=== PATIENT | male | born 1955 | race African-American/Black ===

== ENCOUNTER 2024-06-24 16:37 | Emergency (ER) | payer BC ==
[~2024-06-24] VITALS: Ht 172.7 cm; Wt 80.0 kg
[2024-06-24] MEDS: METHYLPREDNISOLONE SOD SUCC 125MG/2ML (ACT-O-VIAL) IV STA (17:33)
[2024-06-24] MEDS: FUROSEMIDE 40MG/4ML VIAL IVP ONE (17:33)
[2024-06-24 17:37] LABS: HEMATOCRIT. 42.6 % (42.0-52.0); HEMOGLOBIN. 13.8 g/dL (14.0-18.0); MEAN CORPUSCULAR HEMOGLOBIN 28.9 pg (28.0-32.0); MEAN CORPUSCULAR HGB CONC 32.4 g/dL (31.0-37.0); MEAN CORPUSCULAR VOLUME 89.2 fL (80.0-94.0); PLATELET 143 x1000/uL (130-400); RED BLOOD CELL COUNT 4.77 mill/uL (4.7-6.1); RED CELL DISTRIBUTION WIDTH 14.2 % (11.6-14.6); WHITE BLOOD COUNT 3.6 x1000/uL (4.5-11.0)
[2024-06-24 17:44] LABS: CARBON DIOXIDE 38 mEq/L (21-32); CHLORIDE 88 mEq/L (98-107); DIFFERENTIAL COMMENT 1; SODIUM 133 mEq/L (136-145)
[2024-06-24 17:45] LABS: CALCIUM 9.3 mg/dL (8.7-10.4)
[2024-06-24 17:50] LABS: CREATININE 0.6 mg/dL (0.6-1.3); GLUCOSE 123 mg/dL (70-105); UREA NITROGEN BLOOD 11 mg/dL (9-23)
[2024-06-24 17:52] LABS: TROPONIN I HIGH SENSITIVITY 12 ng/L (3.0-53)
[2024-06-24] MEDS: ALBUTEROL (0.083%) 2.5MG/3ML NEB HHN STA (18:15)
[2024-06-24] MEDS: IPRATROPIUM BROMIDE (0.02%) 0.5MG/2.5ML NEB HHN STA (18:15)
[2024-06-24 18:20] LABS: INR 0.9; PROTHROMBIN TIME 10.4 sec (9.6-11.0)
[2024-06-24 18:45] VITALS: PULSE 89; RESP 20; O2SAT 97
[2024-06-24 19:17] LABS: PLATELET ESTIMATE SLIGHTLY DECREASED
[2024-06-24 21:38] LABS: TROPONIN I HIGH SENSITIVITY 14 ng/L (3.0-53)
[2024-06-24 23:00] VITALS: BP 134/84; PULSE 95; RESP 26; O2SAT 95
== END 2024-06-24 23:23 | disposition short-term general hospital (02) ==
LOC: ER 16:37 → CANBEDREQ 19:12 → ER 23:23
DX: R06.02 Shortness of breath (principal); J44.9 Chronic obstructive pulmonary disease, unspecified; R53.1 Weakness; I10 Essential (primary) hypertension
CPT/HCPCS: 99285; 96374; 71045; 96375; 80048; 83880; 85025; 85610; 84484; 36415; 94640; 93005; J1940; J2919

== ENCOUNTER 2024-08-03 07:24 | Inpatient (IN) | payer BC ==
[~2024-08-03] VITALS: Ht 185.4 cm; Wt 68.9 kg
[2024-08-03] VITALS (41 sets, daily range): BP systolic 69–173; BP diastolic 52–104; PULSE 78–128; RESP 0–30; TEMP 36.7–36.8; O2SAT 0–100
[2024-08-03] MEDS ORDERED: FENTANYL CITRATE/PF 50MCG/ML 2ML VIAL IV ONE (07:45)
[2024-08-03] MEDS ORDERED: MIDAZOLAM HCL 100 MG in DEXT 5% WATER 80 ML IV ONE (07:45)
[2024-08-03] MEDS ORDERED: FENTANYL 2500MCG/250ML PMX 250 ML IV ONE (08:00)
[2024-08-03] MEDS ORDERED: MIDAZOLAM HCL 100 MG in DEXT 5% WATER 80 ML IV PRN (08:00)
[2024-08-03] MEDS ORDERED: FENTANYL CITRATE/PF 50MCG/ML 2ML VIAL IV NR (08:00)
[2024-08-03] MEDS: FENTANYL CITRATE/PF 50MCG/ML 2ML VIAL IV ONE (08:08)
[2024-08-03] MEDS: MIDAZOLAM HCL 100 MG in SODIUM CHLORIDE 0.9% 80 ML IV PRN (08:35)
[2024-08-03] MEDS: FENTANYL CITRATE/PF 1,000 MCG in DEXT 5% WATER 80 ML IV PRN (08:35)
[2024-08-03] MEDS: SODIUM CHLORIDE 0.9% (SEPSIS BOLUS) IV ONE (08:35)
[2024-08-03] MEDS: NOREPINEPHRINE 8MG/250ML PMX 250 ML IV ONE (08:56)
[2024-08-03 09:16] LABS: HEMOGLOBIN. 13.9 g/dL (14.0-18.0); MEAN CORPUSCULAR HEMOGLOBIN 28.8 pg (28.0-32.0); MEAN CORPUSCULAR HGB CONC 30.9 g/dL (31.0-37.0); MEAN CORPUSCULAR VOLUME 93.4 fL (80.0-94.0); MEAN PLATELET VOLUME 9.1 fl (7.4-10.4); PLATELET 144 x1000/uL (130-400); RED BLOOD CELL COUNT 4.82 mill/uL (4.7-6.1); RED CELL DISTRIBUTION WIDTH 14.7 % (11.6-14.6)
[2024-08-03 09:23] LABS: DIFFERENTIAL COMMENT 1
[2024-08-03 09:29] LABS: CHLORIDE 91 mEq/L (98-107); SODIUM 133 mEq/L (136-145)
[2024-08-03 09:32] LABS: CARBON DIOXIDE 37 mEq/L (21-32); POTASSIUM 6.2 mEq/L (3.5-5.1)
[2024-08-03 09:33] LABS: CALCIUM 9.1 mg/dL (8.7-10.4)
[2024-08-03 09:36] LABS: PROTHROMBIN TIME 11.4 sec (9.6-11.0)
[2024-08-03 09:37] LABS: CREATININE 0.7 mg/dL (0.6-1.3)
[2024-08-03 09:38] LABS: GLUCOSE 110 mg/dL (70-105); UREA NITROGEN BLOOD 10 mg/dL (9-23)
[2024-08-03 09:39] LABS: BG BASE EXCESS 2.6 mmol/L (-2.0-3.0); BG CARBOXYHEMOGLOBIN 0.9 % (0.5-1.5); BG DEOXYHEMOGLOBIN 3.4 % (0.0-5.0); BG FRACTION INSPIRED OXYGEN 100; BG HCO3 ACT 37.1 mmol/L (21.0-28.0); BG METHEMOGLOBIN 0.1 % (0.5-1.5); BG OXYGEN SATURATION 96.6 % (94.0-98.0); BG OXYHEMOGLOBIN 95.6 % (94.0-98.0); BG PCO2 133.9 mmHg (35.0-48.0); BG PH 7.061 (7.350-7.450); BG PO2 110.2 mmHg (83.0-108.0); BG TOTAL HEMOGLOBIN 13.5 g/dL (13.5-17.5); BG VENT MODE VENT - AC
[2024-08-03 09:39] LABS: ALANINE AMINOTRANSFERASE 802 IU/L (10-49); ASPARTATE AMINOTRANSFERASE 646 IU/L (<34); TROPONIN I HIGH SENSITIVITY 17 ng/L (3.0-53)
[2024-08-03 09:40] LABS: ALBUMIN 3.5 g/dL (3.2-4.8); BILIRUBIN DIRECT 0.2 mg/dL (<=3.0); BILIRUBIN TOTAL 0.6 mg/dL (0.1-1.0); PROTEIN TOTAL 5.8 g/dL (6.0-8.3)
[2024-08-03] MEDS: LIDOCAINE HCL 1% 10 MG/ML 10ML VIAL ONE (09:49)
[2024-08-03 09:51] LABS: LACTIC ACID 5.1 mmol/L (0.4-2.0)
[2024-08-03] MEDS: CALCIUM CHLORIDE 1GM/10ML SYR IV ONE (09:59)
[2024-08-03] MEDS: SODIUM BICARBONATE 8.4% 50MEQ/50ML SYR IV ONE (10:00)
[2024-08-03] MEDS: DEXTROSE 50% WATER 50ML SYRINGE IV ONE (10:00)
[2024-08-03] MEDS: INSULIN REGULAR (HUMULIN R) 1000UNITS/10ML VIAL IV ONE (10:01)
[2024-08-03 10:06] LABS: PLATELET ESTIMATE SLIGHTLY DECREASED
[2024-08-03] MEDS: FUROSEMIDE 40MG/4ML VIAL IV SCH (10:11)
[2024-08-03] MEDS: FUROSEMIDE 100MG/10ML VIAL IV STA (10:11)
[2024-08-03] MEDS: ALBUTEROL (0.083%) 2.5MG/3ML NEB HHN ONE (10:49)
[2024-08-03 11:21] LABS: CLARITY URINE CLOUDY (CLEAR); COLOR URINE YELLOW (YELLOW); GLUCOSE URINE TRACE (NEGATIVE); KETONES URINE NEGATIVE (NEGATIVE); LEUKOCYTE ESTERASE URINE NEGATIVE (NEGATIVE); NITRITE URINE NEGATIVE (NEGATIVE); OCCULT BLOOD URINE 2+ (NEGATIVE); PH URINE 6.5 (4.5-8.0); PROTEIN URINE 3+ (NEGATIVE); SPECIFIC GRAVITY URINE 1.016 (1.005-1.030)
[2024-08-03] MEDS: PROPOFOL 10MG/ML 100ML 100 ML IV PRN ×2 (11:44→21:20)
[2024-08-03 12:01] LABS: BACTERIA URINE 1+; SQUAMOUS EPITHELIAL CELL URINE NONE SEEN /lpf (RARE/1+); WBC URINE 0-2 /hpf (0-2); YEAST URINE NONE SEEN
[2024-08-03] MEDS: LACTATED RINGERS 1,000 ML IV SCH (12:36)
[2024-08-03] MEDS: BUDESONIDE 0.5MG/2ML NEB HHN SCH (12:36)
[2024-08-03] MEDS: IPRATROPIUM/ALBUTEROL 0.5-3(2.5)MG/3ML NEB HHN SCH (12:37)
[2024-08-03] MEDS ORDERED: NOREPINEPHRINE 8MG/250ML PMX 250 ML IV PRN (13:15)
[2024-08-03] MEDS: FAMOTIDINE 20MG/2ML VIAL IV SCH (13:49)
[2024-08-03] MEDS: METHYLPREDNISOLONE SOD SUCC 40MG/ML (ACT-O-VIAL) IV SCH (13:49)
[2024-08-03] MEDS: ENOXAPARIN 30MG/0.3ML SYR SUBCUT SCH (13:51)
[2024-08-03 14:18] LABS: BG BASE EXCESS 8.2 mmol/L (-2.0-3.0); BG CARBOXYHEMOGLOBIN 0.9 % (0.5-1.5); BG DEOXYHEMOGLOBIN 4.6 % (0.0-5.0); BG FRACTION INSPIRED OXYGEN 70; BG HCO3 ACT 37.5 mmol/L (21.0-28.0); BG METHEMOGLOBIN 0.3 % (0.5-1.5); BG OXYGEN SATURATION 95.3 % (94.0-98.0); BG OXYHEMOGLOBIN 94.2 % (94.0-98.0); BG PCO2 76.1 mmHg (35.0-48.0); BG PH 7.311 (7.350-7.450); BG PO2 78.6 mmHg (83.0-108.0); BG SAMPLE SITE RIGHT RADIAL; BG TOTAL HEMOGLOBIN 14.4 g/dL (13.5-17.5); BG VENT MODE VENT - PRVC
[2024-08-03] MEDS: DEXT 5%/0.45% NACL 1000ML 1,000 ML IV SCH (18:30)
[2024-08-03 18:49] LABS: CHLORIDE 91 mEq/L (98-107); POTASSIUM 6.1 mEq/L (3.5-5.1); SODIUM 134 mEq/L (136-145)
[2024-08-03 18:50] LABS: CALCIUM 8.9 mg/dL (8.7-10.4); CARBON DIOXIDE 36 mEq/L (21-32)
[2024-08-03 18:55] LABS: CREATININE 0.7 mg/dL (0.6-1.3); GLUCOSE 105 mg/dL (70-105); UREA NITROGEN BLOOD 9 mg/dL (9-23)
[2024-08-03] MEDS: SODIUM POLYSTYRENE SULFONATE 15 G/60 ML BOT PO NR (21:17)
[2024-08-03] MEDS: VANCOMYCIN 1.5GM/250ML 250 ML IV NR (21:17)
[2024-08-03] MEDS: NOREPINEPHRINE 8MG/250ML PMX 250 ML IV PRN (21:25)
[2024-08-03] MEDS: PIPERACILLIN/TAZO 3.375G/50ML 50 ML IV SCH (22:33)
[2024-08-03 22:54] LABS: TROPONIN I HIGH SENSITIVITY 94 ng/L (3.0-53)
[2024-08-04] VITALS (97 sets, daily range): BP systolic 87–148; BP diastolic 64–127; PULSE 79–119; RESP 9–27; TEMP 36.7–37.2; O2SAT 87–100
[2024-08-04] MEDS: VANCOMYCIN 1G PREMIX 200 ML IV SCH (05:27)
[2024-08-04 05:54] LABS: CHLORIDE 94 mEq/L (98-107); POTASSIUM 4.3 mEq/L (3.5-5.1); SODIUM 134 mEq/L (136-145)
[2024-08-04 05:55] LABS: CALCIUM 8.8 mg/dL (8.7-10.4); CARBON DIOXIDE 38 mEq/L (21-32)
[2024-08-04 05:56] LABS: HEMATOCRIT. 39.1 % (42.0-52.0); HEMOGLOBIN. 12.7 g/dL (14.0-18.0); MEAN CORPUSCULAR HEMOGLOBIN 28.7 pg (28.0-32.0); MEAN CORPUSCULAR HGB CONC 32.5 g/dL (31.0-37.0); MEAN CORPUSCULAR VOLUME 88.5 fL (80.0-94.0); MEAN PLATELET VOLUME 9.3 fl (7.4-10.4); PLATELET 155 x1000/uL (130-400); RED BLOOD CELL COUNT 4.42 mill/uL (4.7-6.1); RED CELL DISTRIBUTION WIDTH 14.6 % (11.6-14.6); WHITE BLOOD COUNT 10.7 x1000/uL (4.5-11.0)
[2024-08-04 06:00] LABS: CREATININE 0.9 mg/dL (0.6-1.3); GLUCOSE 150 mg/dL (70-105); TRIGLYCERIDE 39 mg/dL (0-150); UREA NITROGEN BLOOD 21 mg/dL (9-23)
[2024-08-04 06:30] LABS: DIFFERENTIAL COMMENT 1
[2024-08-04 09:07] LABS: BG CARBOXYHEMOGLOBIN 0.4 % (0.5-1.5); BG FRACTION INSPIRED OXYGEN 30; BG HCO3 ACT 37.7 mmol/L (21.0-28.0); BG METHEMOGLOBIN 0.1 % (0.5-1.5); BG OXYGEN SATURATION 89.9 % (94.0-98.0); BG OXYHEMOGLOBIN 89.5 % (94.0-98.0); BG PCO2 52.5 mmHg (35.0-48.0); BG PH 7.474 (7.350-7.450); BG PO2 53.7 mmHg (83.0-108.0); BG SAMPLE SITE RIGHT RADIAL; BG VENT MODE VENT - PRVC
[2024-08-04] MEDS: ENOXAPARIN 40MG/0.4ML SYR SUBCUT SCH (09:12)
[2024-08-05] VITALS (82 sets, daily range): BP systolic 84–152; BP diastolic 61–93; PULSE 74–121; RESP 15–25; TEMP 36.3–37.1; O2SAT 85–100
[2024-08-05 03:27] LABS: CHLORIDE 92 mEq/L (98-107); POTASSIUM 4.6 mEq/L (3.5-5.1); SODIUM 133 mEq/L (136-145)
[2024-08-05 03:28] LABS: CARBON DIOXIDE 38 mEq/L (21-32)
[2024-08-05 03:29] LABS: CALCIUM 8.5 mg/dL (8.7-10.4)
[2024-08-05 03:33] LABS: CREATININE 1.2 mg/dL (0.6-1.3); GLUCOSE 152 mg/dL (70-105); UREA NITROGEN BLOOD 23 mg/dL (9-23)
[2024-08-05 08:51] LABS: BG BASE EXCESS 10.3 mmol/L (-2.0-3.0); BG CARBOXYHEMOGLOBIN 0.6 % (0.5-1.5); BG DEOXYHEMOGLOBIN 3.5 % (0.0-5.0); BG FRACTION INSPIRED OXYGEN 50; BG HCO3 ACT 37.9 mmol/L (21.0-28.0); BG METHEMOGLOBIN 0.2 % (0.5-1.5); BG OXYGEN SATURATION 96.5 % (94.0-98.0); BG OXYHEMOGLOBIN 95.7 % (94.0-98.0); BG PH 7.377 (7.350-7.450); BG PO2 87.4 mmHg (83.0-108.0); BG SAMPLE SITE RIGHT RADIAL; BG TOTAL HEMOGLOBIN 12.5 g/dL (13.5-17.5); BG VENT MODE VENT - AC
[2024-08-05] MEDS: FUROSEMIDE 40MG/4ML VIAL IVP NR (12:07)
[2024-08-05 12:29] LABS: BG BASE EXCESS 12.4 mmol/L (-2.0-3.0); BG CARBOXYHEMOGLOBIN 0.8 % (0.5-1.5); BG DEOXYHEMOGLOBIN 4.6 % (0.0-5.0); BG FRACTION INSPIRED OXYGEN 50; BG HCO3 ACT 39.8 mmol/L (21.0-28.0); BG METHEMOGLOBIN 0.1 % (0.5-1.5); BG OXYGEN SATURATION 95.4 % (94.0-98.0); BG OXYHEMOGLOBIN 94.5 % (94.0-98.0); BG PCO2 63.9 mmHg (35.0-48.0); BG PH 7.412 (7.350-7.450); BG PO2 77.2 mmHg (83.0-108.0); BG SAMPLE SITE RIGHT RADIAL; BG TOTAL HEMOGLOBIN 13.5 g/dL (13.5-17.5); BG VENT MODE VENT - AC
[2024-08-05 16:07] LABS: PLATELET ESTIMATE NORMAL
[2024-08-05] MEDS: VANCOMYCIN 500MG PREMIX 100 ML IV SCH (21:29)
[2024-08-05] MEDS: FAMOTIDINE 20MG/2ML VIAL IV SCH (21:29)
[2024-08-06] VITALS (81 sets, daily range): BP systolic 93–143; BP diastolic 63–93; PULSE 78–125; RESP 13–26; TEMP 36.9–37.4; O2SAT 88–100
[2024-08-06 06:29] LABS: CARBON DIOXIDE 40 mEq/L (21-32); CHLORIDE 94 mEq/L (98-107); POTASSIUM 4.5 mEq/L (3.5-5.1); SODIUM 135 mEq/L (136-145)
[2024-08-06 06:30] LABS: CALCIUM 8.7 mg/dL (8.7-10.4)
[2024-08-06 06:35] LABS: CREATININE 1.1 mg/dL (0.6-1.3); GLUCOSE 144 mg/dL (70-105); UREA NITROGEN BLOOD 26 mg/dL (9-23)
[2024-08-06 06:40] LABS: HEMATOCRIT. 35.6 % (42.0-52.0); HEMOGLOBIN. 11.8 g/dL (14.0-18.0); MEAN CORPUSCULAR HEMOGLOBIN 29.1 pg (28.0-32.0); MEAN CORPUSCULAR VOLUME 88.3 fL (80.0-94.0); MEAN PLATELET VOLUME 9.4 fl (7.4-10.4); PLATELET 120 x1000/uL (130-400); RED BLOOD CELL COUNT 4.04 mill/uL (4.7-6.1); RED CELL DISTRIBUTION WIDTH 14.7 % (11.6-14.6); WHITE BLOOD COUNT 10.6 x1000/uL (4.5-11.0)
[2024-08-06 07:40] LABS: DIFFERENTIAL COMMENT 1
[2024-08-06 11:33] LABS: BG BASE EXCESS 11.2 mmol/L (-2.0-3.0); BG CARBOXYHEMOGLOBIN 1.1 % (0.5-1.5); BG DEOXYHEMOGLOBIN 17.8 % (0.0-5.0); BG FRACTION INSPIRED OXYGEN 40; BG HCO3 ACT 40.7 mmol/L (21.0-28.0); BG METHEMOGLOBIN 0.1 % (0.5-1.5); BG PCO2 80.3 mmHg (35.0-48.0); BG PH 7.323 (7.350-7.450); BG PO2 51.4 mmHg (83.0-108.0); BG SAMPLE SITE RIGHT RADIAL; BG TOTAL HEMOGLOBIN 13.5 g/dL (13.5-17.5); BG VENT MODE VENT - CPAP
[2024-08-06 11:54] LABS: PLATELET ESTIMATE SLIGHTLY DECREASED
[2024-08-06] MEDS ORDERED: VANCOMYCIN 1.25GM PMX (XELLIA) 250 ML IV SCH (21:00)
[2024-08-07] VITALS (88 sets, daily range): BP systolic 77–135; BP diastolic 59–90; PULSE 79–113; RESP 13–41; TEMP 36.6–37.6; O2SAT 87–100
[2024-08-07 06:02] LABS: HEMATOCRIT. 38.2 % (42.0-52.0); HEMOGLOBIN. 12.4 g/dL (14.0-18.0); MEAN CORPUSCULAR HEMOGLOBIN 28.6 pg (28.0-32.0); MEAN CORPUSCULAR HGB CONC 32.4 g/dL (31.0-37.0); MEAN CORPUSCULAR VOLUME 88.4 fL (80.0-94.0); MEAN PLATELET VOLUME 9.9 fl (7.4-10.4); PLATELET 109 x1000/uL (130-400); RED BLOOD CELL COUNT 4.32 mill/uL (4.7-6.1); RED CELL DISTRIBUTION WIDTH 14.9 % (11.6-14.6); WHITE BLOOD COUNT 9.4 x1000/uL (4.5-11.0)
[2024-08-07 06:03] LABS: CARBON DIOXIDE 39 mEq/L (21-32); CHLORIDE 93 mEq/L (98-107); POTASSIUM 4.2 mEq/L (3.5-5.1); SODIUM 138 mEq/L (136-145)
[2024-08-07 06:04] LABS: CALCIUM 9.3 mg/dL (8.7-10.4)
[2024-08-07 06:09] LABS: GLUCOSE 105 mg/dL (70-105); UREA NITROGEN BLOOD 28 mg/dL (9-23)
[2024-08-07 06:12] LABS: DIFFERENTIAL COMMENT 1
[2024-08-07 08:54] LABS: BG BASE EXCESS 11.2 mmol/L (-2.0-3.0); BG CARBOXYHEMOGLOBIN 1.5 % (0.5-1.5); BG DEOXYHEMOGLOBIN 9.9 % (0.0-5.0); BG FRACTION INSPIRED OXYGEN 50; BG HCO3 ACT 41.2 mmol/L (21.0-28.0); BG METHEMOGLOBIN 0.2 % (0.5-1.5); BG OXYGEN SATURATION 89.9 % (94.0-98.0); BG OXYHEMOGLOBIN 88.4 % (94.0-98.0); BG PCO2 85.9 mmHg (35.0-48.0); BG PH 7.299 (7.350-7.450); BG PO2 64.8 mmHg (83.0-108.0); BG SAMPLE SITE RIGHT RADIAL; BG TOTAL HEMOGLOBIN 13.3 g/dL (13.5-17.5); BG VENT MODE VENT - CPAP
[2024-08-07 12:06] LABS: PLATELET ESTIMATE SLIGHTLY DECREASED
[2024-08-08] VITALS (74 sets, daily range): BP systolic 81–120; BP diastolic 62–82; PULSE 68–122; RESP 14–53; TEMP 36.8–37.2; O2SAT 61–100
[2024-08-08 06:03] LABS: HEMATOCRIT. 33.1 % (42.0-52.0); HEMOGLOBIN. 10.7 g/dL (14.0-18.0); MEAN CORPUSCULAR HEMOGLOBIN 28.8 pg (28.0-32.0); MEAN CORPUSCULAR HGB CONC 32.4 g/dL (31.0-37.0); MEAN CORPUSCULAR VOLUME 89.1 fL (80.0-94.0); MEAN PLATELET VOLUME 9.6 fl (7.4-10.4); PLATELET 90 x1000/uL (130-400); RED BLOOD CELL COUNT 3.71 mill/uL (4.7-6.1); RED CELL DISTRIBUTION WIDTH 14.5 % (11.6-14.6)
[2024-08-08 07:13] LABS: CALCIUM 8.9 mg/dL (8.7-10.4); CHLORIDE 95 mEq/L (98-107); POTASSIUM 4.6 mEq/L (3.5-5.1); SODIUM 139 mEq/L (136-145)
[2024-08-08 07:14] LABS: CARBON DIOXIDE 39 mEq/L (21-32)
[2024-08-08 07:19] LABS: CREATININE 0.9 mg/dL (0.6-1.3); GLUCOSE 143 mg/dL (70-105); UREA NITROGEN BLOOD 32 mg/dL (9-23)
[2024-08-08 07:21] LABS: PHOSPHORUS 2.5 mg/dL (2.5-4.9)
[2024-08-08 07:50] LABS: DIFFERENTIAL COMMENT 1
[2024-08-08 11:50] LABS: BG BASE EXCESS 8.9 mmol/L (-2.0-3.0); BG CARBOXYHEMOGLOBIN 0.9 % (0.5-1.5); BG DEOXYHEMOGLOBIN 8.6 % (0.0-5.0); BG FRACTION INSPIRED OXYGEN 45; BG HCO3 ACT 36.8 mmol/L (21.0-28.0); BG METHEMOGLOBIN 0.3 % (0.5-1.5); BG OXYGEN SATURATION 91.3 % (94.0-98.0); BG OXYHEMOGLOBIN 90.2 % (94.0-98.0); BG PCO2 69.3 mmHg (35.0-48.0); BG PH 7.343 (7.350-7.450); BG PO2 65.6 mmHg (83.0-108.0); BG TOTAL HEMOGLOBIN 11.4 g/dL (13.5-17.5); BG VENT MODE VENT - CPAP
[2024-08-08 15:53] LABS: PLATELET ESTIMATE DECREASED
[2024-08-08 16:41] LABS: BG BASE EXCESS 13.3 mmol/L (-2.0-3.0); BG CARBOXYHEMOGLOBIN 0.8 % (0.5-1.5); BG DEOXYHEMOGLOBIN 7.9 % (0.0-5.0); BG FRACTION INSPIRED OXYGEN 55; BG METHEMOGLOBIN 0.4 % (0.5-1.5); BG OXYHEMOGLOBIN 90.9 % (94.0-98.0); BG PCO2 89.5 mmHg (35.0-48.0); BG PO2 70.5 mmHg (83.0-108.0); BG SAMPLE SITE RIGHT RADIAL; BG TOTAL HEMOGLOBIN 11.4 g/dL (13.5-17.5); BG VENT MODE HIGH FLOW
[2024-08-09] VITALS (54 sets, daily range): BP systolic 84–132; BP diastolic 60–96; PULSE 85–109; RESP 13–31; TEMP 36.6–37; O2SAT 77–100
[2024-08-09 10:00] LABS: BG BASE EXCESS 15.7 mmol/L (-2.0-3.0); BG CARBOXYHEMOGLOBIN 1.8 % (0.5-1.5); BG DEOXYHEMOGLOBIN 12.3 % (0.0-5.0); BG FRACTION INSPIRED OXYGEN 55; BG OXYGEN SATURATION 87.5 % (94.0-98.0); BG OXYHEMOGLOBIN 85.9 % (94.0-98.0); BG PCO2 112.2 mmHg (35.0-48.0); BG PH 7.249 (7.350-7.450); BG PO2 59.3 mmHg (83.0-108.0); BG SAMPLE SITE RIGHT RADIAL; BG TOTAL HEMOGLOBIN 13.1 g/dL (13.5-17.5); BG VENT MODE HIGH FLOW
[2024-08-10] VITALS (46 sets, daily range): BP systolic 99–129; BP diastolic 70–90; PULSE 85–109; RESP 9–24; TEMP 36.6–37; O2SAT 84–100
[2024-08-10 06:22] LABS: HEMATOCRIT. 36.9 % (42.0-52.0); HEMOGLOBIN. 11.7 g/dL (14.0-18.0); MEAN CORPUSCULAR HEMOGLOBIN 29.1 pg (28.0-32.0); MEAN CORPUSCULAR HGB CONC 31.8 g/dL (31.0-37.0); MEAN CORPUSCULAR VOLUME 91.4 fL (80.0-94.0); MEAN PLATELET VOLUME 9.7 fl (7.4-10.4); PLATELET 122 x1000/uL (130-400); RED BLOOD CELL COUNT 4.04 mill/uL (4.7-6.1); RED CELL DISTRIBUTION WIDTH 14.4 % (11.6-14.6); WHITE BLOOD COUNT 7.5 x1000/uL (4.5-11.0)
[2024-08-10 06:37] LABS: CALCIUM 9.2 mg/dL (8.7-10.4); CHLORIDE 96 mEq/L (98-107); POTASSIUM 5.6 mEq/L (3.5-5.1); SODIUM 140 mEq/L (136-145)
[2024-08-10 06:42] LABS: BG BASE EXCESS 9.9 mmol/L (-2.0-3.0); BG FRACTION INSPIRED OXYGEN 55; BG HCO3 ACT 40.9 mmol/L (21.0-28.0); BG PCO2 89.9 mmHg (35.0-48.0); BG PH 7.276 (7.350-7.450); BG VENT MODE MASK - BIPAP
[2024-08-10 06:43] LABS: CREATININE 0.6 mg/dL (0.6-1.3); GLUCOSE 118 mg/dL (70-105); UREA NITROGEN BLOOD 26 mg/dL (9-23)
[2024-08-10 06:48] LABS: DIFFERENTIAL COMMENT 1
[2024-08-10 06:57] LABS: CARBON DIOXIDE > 40 mEq/L (21-32)
[2024-08-10 09:42] LABS: PLATELET ESTIMATE SLIGHTLY DECREASED
[2024-08-10] MEDS: NA PHOS,M-B/NA PHOS,DI-BA ENEMA 118ML PR NR (13:12)
[2024-08-10] MEDS: FUROSEMIDE 40MG/4ML VIAL IVP NR (21:06)
[2024-08-11] VITALS (45 sets, daily range): BP systolic 121–154; BP diastolic 74–103; PULSE 83–111; RESP 13–32; TEMP 36.3–36.8; O2SAT 80–100
[2024-08-11 05:24] LABS: HEMATOCRIT. 36.7 % (42.0-52.0); HEMOGLOBIN. 11.7 g/dL (14.0-18.0); MEAN CORPUSCULAR HEMOGLOBIN 28.1 pg (28.0-32.0); MEAN CORPUSCULAR HGB CONC 31.8 g/dL (31.0-37.0); MEAN CORPUSCULAR VOLUME 88.4 fL (80.0-94.0); MEAN PLATELET VOLUME 9.7 fl (7.4-10.4); PLATELET 142 x1000/uL (130-400); RED BLOOD CELL COUNT 4.15 mill/uL (4.7-6.1); RED CELL DISTRIBUTION WIDTH 14.3 % (11.6-14.6); WHITE BLOOD COUNT 7.7 x1000/uL (4.5-11.0)
[2024-08-11 05:35] LABS: CHLORIDE 93 mEq/L (98-107); POTASSIUM 5.6 mEq/L (3.5-5.1); SODIUM 140 mEq/L (136-145)
[2024-08-11 05:37] LABS: CALCIUM 9.4 mg/dL (8.7-10.4)
[2024-08-11 05:41] LABS: CREATININE 0.7 mg/dL (0.6-1.3); GLUCOSE 104 mg/dL (70-105)
[2024-08-11 05:42] LABS: UREA NITROGEN BLOOD 24 mg/dL (9-23)
[2024-08-11 06:05] LABS: DIFFERENTIAL COMMENT 1
[2024-08-11 07:57] LABS: CARBON DIOXIDE > 40 mEq/L (21-32)
[2024-08-11] MEDS: SODIUM ZIRCONIUM CYCLOSILICATE 10GM/PACKET PO NR (09:31)
[2024-08-11 09:39] LABS: BG BASE EXCESS 15.5 mmol/L (-2.0-3.0); BG CARBOXYHEMOGLOBIN 1.4 % (0.5-1.5); BG DEOXYHEMOGLOBIN 13.8 % (0.0-5.0); BG FRACTION INSPIRED OXYGEN 50; BG HCO3 ACT 46.8 mmol/L (21.0-28.0); BG METHEMOGLOBIN 0.3 % (0.5-1.5); BG OXYHEMOGLOBIN 84.5 % (94.0-98.0); BG PCO2 99.8 mmHg (35.0-48.0); BG PH 7.289 (7.350-7.450); BG PO2 53.6 mmHg (83.0-108.0); BG SAMPLE SITE RIGHT RADIAL; BG TOTAL HEMOGLOBIN 13.4 g/dL (13.5-17.5); BG VENT MODE HIGH FLOW
[2024-08-11] MEDS: IOHEXOL-350 100 ML BOTTLE ONE (09:47)
[2024-08-11] MEDS: FUROSEMIDE 40MG/4ML VIAL IVP NR (11:46)
[2024-08-11] MEDS: SODIUM BICARBONATE 8.4% 50MEQ/50ML SYR IV NR (11:46)
[2024-08-11] MEDS: CALCIUM GLUCONATE 100MG/ML 10ML VIAL IV NR (11:46)
[2024-08-11 14:49] LABS: BG BASE EXCESS 16.3 mmol/L (-2.0-3.0); BG CARBOXYHEMOGLOBIN 1.6 % (0.5-1.5); BG DEOXYHEMOGLOBIN 10.1 % (0.0-5.0); BG FRACTION INSPIRED OXYGEN 45; BG METHEMOGLOBIN 0.3 % (0.5-1.5); BG OXYGEN SATURATION 89.7 % (94.0-98.0); BG PCO2 90.8 mmHg (35.0-48.0); BG PH 7.332 (7.350-7.450); BG PO2 58.7 mmHg (83.0-108.0); BG SAMPLE SITE RIGHT RADIAL; BG VENT MODE MASK - BIPAP
[2024-08-11 17:56] LABS: PLATELET ESTIMATE SLIGHTLY DECREASED
[2024-08-12] VITALS (17 sets, daily range): BP systolic 107–131; BP diastolic 63–89; PULSE 82–108; RESP 15–23; TEMP 36.2–36.9; O2SAT 97–100
[2024-08-12 07:04] LABS: CHLORIDE 89 mEq/L (98-107); POTASSIUM 5.1 mEq/L (3.5-5.1); SODIUM 142 mEq/L (136-145)
[2024-08-12 07:11] LABS: CREATININE 0.6 mg/dL (0.6-1.3); GLUCOSE 108 mg/dL (70-105); UREA NITROGEN BLOOD 26 mg/dL (9-23)
[2024-08-12 08:12] LABS: HEMATOCRIT. 37.4 % (42.0-52.0); HEMOGLOBIN. 11.9 g/dL (14.0-18.0); MEAN CORPUSCULAR HEMOGLOBIN 28.2 pg (28.0-32.0); MEAN CORPUSCULAR HGB CONC 31.8 g/dL (31.0-37.0); MEAN CORPUSCULAR VOLUME 88.6 fL (80.0-94.0); MEAN PLATELET VOLUME 9.7 fl (7.4-10.4); PLATELET 173 x1000/uL (130-400); RED BLOOD CELL COUNT 4.22 mill/uL (4.7-6.1); RED CELL DISTRIBUTION WIDTH 14.3 % (11.6-14.6); WHITE BLOOD COUNT 6.1 x1000/uL (4.5-11.0)
[2024-08-12 08:40] LABS: CARBON DIOXIDE > 40 mEq/L (21-32)
[2024-08-12 10:15] LABS: DIFFERENTIAL COMMENT 1
[2024-08-12 18:31] LABS: PLATELET ESTIMATE NORMAL
[2024-08-12] MEDS: FUROSEMIDE 40MG/4ML VIAL IVP NR (21:04)
[2024-08-13] VITALS (20 sets, daily range): BP systolic 101–150; BP diastolic 73–92; PULSE 84–102; RESP 12–45; TEMP 36.6–37.3; O2SAT 88–100
[2024-08-13 02:07] LABS: BG BASE EXCESS 24.1 mmol/L (-2.0-3.0); BG CARBOXYHEMOGLOBIN 1.1 % (0.5-1.5); BG DEOXYHEMOGLOBIN 14.7 % (0.0-5.0); BG FRACTION INSPIRED OXYGEN 40; BG HCO3 ACT 55.2 mmol/L (21.0-28.0); BG OXYGEN SATURATION 85.1 % (94.0-98.0); BG OXYHEMOGLOBIN 84.2 % (94.0-98.0); BG PCO2 99.5 mmHg (35.0-48.0); BG PH 7.362 (7.350-7.450); BG SAMPLE SITE RIGHT RADIAL; BG TOTAL HEMOGLOBIN 12.8 g/dL (13.5-17.5); BG VENT MODE NASAL CANNULA
[2024-08-13 05:17] LABS: CHLORIDE 86 mEq/L (98-107); POTASSIUM 4.6 mEq/L (3.5-5.1); SODIUM 141 mEq/L (136-145)
[2024-08-13 05:18] LABS: CALCIUM 10.1 mg/dL (8.7-10.4)
[2024-08-13 05:23] LABS: CREATININE 0.6 mg/dL (0.6-1.3); GLUCOSE 133 mg/dL (70-105); UREA NITROGEN BLOOD 24 mg/dL (9-23)
[2024-08-13 05:35] LABS: CARBON DIOXIDE > 40 mEq/L (21-32)
[2024-08-13 08:03] LABS: HEMATOCRIT. 37.5 % (42.0-52.0); HEMOGLOBIN. 11.9 g/dL (14.0-18.0); MEAN CORPUSCULAR HEMOGLOBIN 28.6 pg (28.0-32.0); MEAN CORPUSCULAR HGB CONC 31.8 g/dL (31.0-37.0); MEAN PLATELET VOLUME 9.5 fl (7.4-10.4); PLATELET 197 x1000/uL (130-400); RED BLOOD CELL COUNT 4.17 mill/uL (4.7-6.1); WHITE BLOOD COUNT 8.2 x1000/uL (4.5-11.0)
[2024-08-13 08:36] LABS: DIFFERENTIAL COMMENT 1
[2024-08-13 16:07] LABS: PLATELET ESTIMATE NORMAL
[2024-08-14] VITALS (11 sets, daily range): BP systolic 103–148; BP diastolic 74–88; PULSE 84–101; RESP 15–31; TEMP 36.5–37.2; O2SAT 88–98
[2024-08-14 06:16] LABS: CHLORIDE 88 mEq/L (98-107); POTASSIUM 4.2 mEq/L (3.5-5.1); SODIUM 141 mEq/L (136-145)
[2024-08-14 06:17] LABS: HEMATOCRIT 35.9 % (42.0-52.0); HEMOGLOBIN 11.7 g/dL (14.0-18.0); MEAN CORPUSCULAR HEMOGLOBIN 28.7 pg (28.0-32.0); MEAN CORPUSCULAR HGB CONC 32.5 g/dL (31.0-37.0); MEAN CORPUSCULAR VOLUME 88.2 fL (80.0-94.0); PLATELET 180 x1000/uL (130-400); RED BLOOD CELL COUNT 4.07 mill/uL (4.7-6.1); WHITE BLOOD COUNT 10.1 x1000/uL (4.5-11.0)
[2024-08-14 06:18] LABS: CALCIUM 10.1 mg/dL (8.7-10.4)
[2024-08-14 06:22] LABS: CREATININE 0.7 mg/dL (0.6-1.3); GLUCOSE 85 mg/dL (70-105); UREA NITROGEN BLOOD 22 mg/dL (9-23)
[2024-08-14 06:49] LABS: CARBON DIOXIDE > 40 mEq/L (21-32)
[2024-08-14] MEDS: PREDNISONE 20MG TABLET PO SCH (09:02)
[2024-08-14 09:05] LABS: INR 1.1
[2024-08-14] MEDS ORDERED: LIDOCAINE HCL 1% 20ML VIAL ONE (13:31)
[2024-08-14] MEDS ORDERED: HEPARIN 1000 UNITS/ML 10ML ONE (13:32)
[2024-08-14] MEDS ORDERED: VERAPAMIL HCL 2.5 MG/1 ML 2ML VIAL IV ONE (13:32)
[2024-08-14] MEDS ORDERED: IODIXANOL 320MG/ML 100 ML BOTTLE IV ONE (13:32)
[2024-08-14] MEDS ORDERED: DIPHENHYDRAMINE 50MG/ML VIAL ONE (13:49)
[2024-08-14] MEDS ORDERED: MIDAZOLAM HCL 2 MG/2 ML VIAL ONE (13:50)
[2024-08-14] MEDS ORDERED: FENTANYL CITRATE/PF 50MCG/ML 2ML VIAL ONE (13:50)
[2024-08-14] MEDS ORDERED: ATROPINE SULFATE 1MG/10ML SYR IV PRN (15:15)
[2024-08-15] VITALS (15 sets, daily range): BP systolic 99–121; BP diastolic 57–79; PULSE 80–100; RESP 14–23; TEMP 36.4–37.3; O2SAT 91–97
[2024-08-15 04:51] LABS: CHLORIDE 90 mEq/L (98-107); POTASSIUM 4.8 mEq/L (3.5-5.1); SODIUM 142 mEq/L (136-145)
[2024-08-15 04:52] LABS: CALCIUM 9.7 mg/dL (8.7-10.4)
[2024-08-15 04:57] LABS: CREATININE 0.6 mg/dL (0.6-1.3); GLUCOSE 85 mg/dL (70-105); UREA NITROGEN BLOOD 23 mg/dL (9-23)
[2024-08-15 05:01] LABS: CARBON DIOXIDE > 40 mEq/L (21-32)
[2024-08-15 07:15] LABS: HEMATOCRIT. 38.1 % (42.0-52.0); HEMOGLOBIN. 12.1 g/dL (14.0-18.0); MEAN CORPUSCULAR HEMOGLOBIN 28.9 pg (28.0-32.0); MEAN CORPUSCULAR HGB CONC 31.9 g/dL (31.0-37.0); MEAN CORPUSCULAR VOLUME 90.6 fL (80.0-94.0); MEAN PLATELET VOLUME 9.1 fl (7.4-10.4); PLATELET 183 x1000/uL (130-400); RED BLOOD CELL COUNT 4.21 mill/uL (4.7-6.1); RED CELL DISTRIBUTION WIDTH 14.4 % (11.6-14.6); WHITE BLOOD COUNT 7.3 x1000/uL (4.5-11.0)
[2024-08-15 07:23] LABS: DIFFERENTIAL COMMENT 1
[2024-08-15 17:01] LABS: PLATELET ESTIMATE NORMAL
[2024-08-16] VITALS (10 sets, daily range): BP systolic 91–125; BP diastolic 57–82; PULSE 85–98; RESP 11–21; TEMP 36.5–37.3; O2SAT 88–97
[2024-08-16] MEDS: ACETAMINOPHEN 325MG TABLET PO PRN (14:00)
[2024-08-17] VITALS (14 sets, daily range): BP systolic 103–131; BP diastolic 64–83; PULSE 80–106; RESP 14–25; TEMP 36.1–36.6; O2SAT 90–100
[2024-08-17 07:10] LABS: HEMATOCRIT. 35.1 % (42.0-52.0); HEMOGLOBIN. 11.1 g/dL (14.0-18.0); MEAN CORPUSCULAR HEMOGLOBIN 28.1 pg (28.0-32.0); MEAN CORPUSCULAR HGB CONC 31.6 g/dL (31.0-37.0); MEAN PLATELET VOLUME 8.9 fl (7.4-10.4); PLATELET 148 x1000/uL (130-400); RED BLOOD CELL COUNT 3.94 mill/uL (4.7-6.1); RED CELL DISTRIBUTION WIDTH 13.8 % (11.6-14.6); WHITE BLOOD COUNT 8.6 x1000/uL (4.5-11.0)
[2024-08-17 07:21] LABS: DIFFERENTIAL COMMENT 1
[2024-08-17 07:34] LABS: CHLORIDE 91 mEq/L (98-107); POTASSIUM 4.6 mEq/L (3.5-5.1); SODIUM 143 mEq/L (136-145)
[2024-08-17 07:35] LABS: CALCIUM 9.5 mg/dL (8.7-10.4)
[2024-08-17 07:40] LABS: CREATININE 0.6 mg/dL (0.6-1.3)
[2024-08-17 07:41] LABS: GLUCOSE 88 mg/dL (70-105); UREA NITROGEN BLOOD 18 mg/dL (9-23)
[2024-08-17 08:55] LABS: CARBON DIOXIDE > 40 mEq/L (21-32)
[2024-08-17 12:47] LABS: PLATELET ESTIMATE NORMAL
[2024-08-17 14:56] LABS: BG BASE EXCESS 16.4 mmol/L (-2.0-3.0); BG CARBOXYHEMOGLOBIN 1.5 % (0.5-1.5); BG DEOXYHEMOGLOBIN 10.8 % (0.0-5.0); BG FRACTION INSPIRED OXYGEN 50; BG HCO3 ACT 47.8 mmol/L (21.0-28.0); BG METHEMOGLOBIN 0.3 % (0.5-1.5); BG OXYHEMOGLOBIN 87.4 % (94.0-98.0); BG PCO2 104.1 mmHg (35.0-48.0); BG PO2 56.5 mmHg (83.0-108.0); BG SAMPLE SITE LEFT RADIAL; BG TOTAL HEMOGLOBIN 12.7 g/dL (13.5-17.5); BG VENT MODE MASK - BIPAP
[2024-08-18] VITALS (17 sets, daily range): BP systolic 99–124; BP diastolic 68–85; PULSE 88–99; RESP 10–29; TEMP 36.3–37.3; O2SAT 100
[2024-08-18 08:06] LABS: CHLORIDE 91 mEq/L (98-107); SODIUM 142 mEq/L (136-145)
[2024-08-18 08:07] LABS: CALCIUM 9.6 mg/dL (8.7-10.4)
[2024-08-18 08:12] LABS: CREATININE 0.5 mg/dL (0.6-1.3); GLUCOSE 95 mg/dL (70-105); UREA NITROGEN BLOOD 18 mg/dL (9-23)
[2024-08-18 08:15] LABS: HEMATOCRIT. 38.6 % (42.0-52.0); MEAN CORPUSCULAR HEMOGLOBIN 28.6 pg (28.0-32.0); MEAN CORPUSCULAR HGB CONC 31.1 g/dL (31.0-37.0); MEAN CORPUSCULAR VOLUME 91.9 fL (80.0-94.0); MEAN PLATELET VOLUME 9.2 fl (7.4-10.4); PLATELET 154 x1000/uL (130-400); WHITE BLOOD COUNT 6.5 x1000/uL (4.5-11.0)
[2024-08-18 08:21] LABS: CARBON DIOXIDE > 40 mEq/L (21-32)
[2024-08-18 08:33] LABS: DIFFERENTIAL COMMENT 1
[2024-08-18 16:00] LABS: PLATELET ESTIMATE NORMAL
[2024-08-19] VITALS (17 sets, daily range): BP systolic 104–124; BP diastolic 67–89; PULSE 88–103; RESP 17–25; TEMP 36.2–36.8; O2SAT 96–100
[2024-08-19] MEDS: FUROSEMIDE 40MG/4ML VIAL IVP NR (22:59)
[2024-08-20] VITALS (19 sets, daily range): BP systolic 91–117; BP diastolic 60–83; PULSE 79–99; RESP 16–24; TEMP 36.1–36.8; O2SAT 94–100
[2024-08-20] MEDS: IPRATROPIUM/ALBUTEROL 0.5-3(2.5)MG/3ML NEB HHN SCH (00:09)
[2024-08-20 09:49] LABS: BG BASE EXCESS 23.3 mmol/L (-2.0-3.0); BG CARBOXYHEMOGLOBIN 0.6 % (0.5-1.5); BG DEOXYHEMOGLOBIN 6.6 % (0.0-5.0); BG FRACTION INSPIRED OXYGEN 55; BG HCO3 ACT 52.8 mmol/L (21.0-28.0); BG METHEMOGLOBIN 0.3 % (0.5-1.5); BG OXYGEN SATURATION 93.3 % (94.0-98.0); BG OXYHEMOGLOBIN 92.5 % (94.0-98.0); BG PCO2 89.5 mmHg (35.0-48.0); BG PH 7.389 (7.350-7.450); BG PO2 67.4 mmHg (83.0-108.0); BG SAMPLE SITE RIGHT RADIAL; BG TOTAL HEMOGLOBIN 11.6 g/dL (13.5-17.5); BG TOTAL RESPIRATORY RATE 20 b/min; BG VENT MODE MASK - BIPAP
[2024-08-20] MEDS: FUROSEMIDE 40MG/4ML VIAL IVP NR (14:22)
[2024-08-21] VITALS (18 sets, daily range): BP systolic 96–133; BP diastolic 71–84; PULSE 78–106; RESP 15–22; TEMP 36.5–37.4; O2SAT 87–100
[2024-08-21] MEDS: FUROSEMIDE 40MG/4ML VIAL IVP NR (11:31)
[2024-08-21 13:08] LABS: CHLORIDE 88 mEq/L (98-107); SODIUM 139 mEq/L (136-145)
[2024-08-21 13:09] LABS: CALCIUM 9.4 mg/dL (8.7-10.4)
[2024-08-21 13:14] LABS: CREATININE 0.5 mg/dL (0.6-1.3); GLUCOSE 142 mg/dL (70-105); UREA NITROGEN BLOOD 20 mg/dL (9-23)
[2024-08-21 13:35] LABS: CARBON DIOXIDE > 40 mEq/L (21-32)
[2024-08-22] VITALS (18 sets, daily range): BP systolic 94–125; BP diastolic 57–96; PULSE 74–102; RESP 13–25; TEMP 36.4–37; O2SAT 96–100
[2024-08-22 05:58] LABS: CHLORIDE 89 mEq/L (98-107); POTASSIUM 4.3 mEq/L (3.5-5.1); SODIUM 140 mEq/L (136-145)
[2024-08-22 06:00] LABS: CALCIUM 9.6 mg/dL (8.7-10.4)
[2024-08-22 06:04] LABS: CREATININE 0.7 mg/dL (0.6-1.3); GLUCOSE 85 mg/dL (70-105)
[2024-08-22 06:05] LABS: UREA NITROGEN BLOOD 21 mg/dL (9-23)
[2024-08-22 06:09] LABS: HEMOGLOBIN. 11.2 g/dL (14.0-18.0); MEAN CORPUSCULAR HEMOGLOBIN 28.4 pg (28.0-32.0); MEAN CORPUSCULAR VOLUME 88.6 fL (80.0-94.0); MEAN PLATELET VOLUME 9.2 fl (7.4-10.4); PLATELET 88 x1000/uL (130-400); RED BLOOD CELL COUNT 3.95 mill/uL (4.7-6.1); RED CELL DISTRIBUTION WIDTH 14.4 % (11.6-14.6); WHITE BLOOD COUNT 8.1 x1000/uL (4.5-11.0)
[2024-08-22 06:15] LABS: CARBON DIOXIDE > 40 mEq/L (21-32)
[2024-08-22 06:48] LABS: DIFFERENTIAL COMMENT 1
[2024-08-22] MEDS: FUROSEMIDE 40MG TABLET PO SCH (12:30)
[2024-08-22 14:06] LABS: PLATELET ESTIMATE DECREASED
[2024-08-23] VITALS (20 sets, daily range): BP systolic 69–115; BP diastolic 54–83; PULSE 87–104; RESP 13–24; TEMP 36.3–36.9; O2SAT 92–100
== END 2024-08-23 20:36 | DRG 870 ==
LOC: ER 07:24 → MICUNO 10:48 → EDBEDREQTM 10:54 → EDBEDREQ 10:54 → 5EST 08-11 16:30
PROVIDERS: ADMIT Internal Medicine Pulmonary Disease; ATTEND Internal Medicine Pulmonary Disease
PROC: 0BH17EZ Insertion of Endotracheal Airway into Trachea, Via Natural or Artificial Opening (ICD-10-PCS; principal; 2024-08-03)
PROC: 5A1955Z Respiratory Ventilation, Greater than 96 Consecutive Hours (ICD-10-PCS; 2024-08-03)
PROC: 05HY33Z Insertion of Infusion Device into Upper Vein, Percutaneous Approach (ICD-10-PCS; 2024-08-03)
PROC: B54MZZA Ultrasonography of Right Upper Extremity Veins, Guidance (ICD-10-PCS; 2024-08-03)
PROC: 5A0935A Assistance with Respiratory Ventilation, Less than 24 Consecutive Hours, High Flow/Velocity Cannula (ICD-10-PCS; 2024-08-08)
PROC: 5A09357 Assistance with Respiratory Ventilation, Less than 24 Consecutive Hours, Continuous Positive Airway Pressure (ICD-10-PCS; 2024-08-09)
PROC: 5A09357 Assistance with Respiratory Ventilation, Less than 24 Consecutive Hours, Continuous Positive Airway Pressure (ICD-10-PCS; 2024-08-10)
PROC: 5A0935A Assistance with Respiratory Ventilation, Less than 24 Consecutive Hours, High Flow/Velocity Cannula (ICD-10-PCS; 2024-08-10)
PROC: 5A09357 Assistance with Respiratory Ventilation, Less than 24 Consecutive Hours, Continuous Positive Airway Pressure (ICD-10-PCS; 2024-08-11)
PROC: 5A09357 Assistance with Respiratory Ventilation, Less than 24 Consecutive Hours, Continuous Positive Airway Pressure (ICD-10-PCS; 2024-08-12)
PROC: 5A09357 Assistance with Respiratory Ventilation, Less than 24 Consecutive Hours, Continuous Positive Airway Pressure (ICD-10-PCS; 2024-08-13)
PROC: 5A09357 Assistance with Respiratory Ventilation, Less than 24 Consecutive Hours, Continuous Positive Airway Pressure (ICD-10-PCS; 2024-08-14)
PROC: 4A023N7 Measurement of Cardiac Sampling and Pressure, Left Heart, Percutaneous Approach (ICD-10-PCS; 2024-08-14)
PROC: B211YZZ Fluoroscopy of Multiple Coronary Arteries using Other Contrast (ICD-10-PCS; 2024-08-14)
PROC: 5A09357 Assistance with Respiratory Ventilation, Less than 24 Consecutive Hours, Continuous Positive Airway Pressure (ICD-10-PCS; 2024-08-17)
PROC: 5A09357 Assistance with Respiratory Ventilation, Less than 24 Consecutive Hours, Continuous Positive Airway Pressure (ICD-10-PCS; 2024-08-18)
PROC: 5A09357 Assistance with Respiratory Ventilation, Less than 24 Consecutive Hours, Continuous Positive Airway Pressure (ICD-10-PCS; 2024-08-19)
PROC: 5A09357 Assistance with Respiratory Ventilation, Less than 24 Consecutive Hours, Continuous Positive Airway Pressure (ICD-10-PCS; 2024-08-20)
PROC: 5A09357 Assistance with Respiratory Ventilation, Less than 24 Consecutive Hours, Continuous Positive Airway Pressure (ICD-10-PCS; 2024-08-21)
PROC: 5A09357 Assistance with Respiratory Ventilation, Less than 24 Consecutive Hours, Continuous Positive Airway Pressure (ICD-10-PCS; 2024-08-22)
PROC: 5A09357 Assistance with Respiratory Ventilation, Less than 24 Consecutive Hours, Continuous Positive Airway Pressure (ICD-10-PCS; 2024-08-23)
DX: A41.9 Sepsis, unspecified organism (principal); J96.21 Acute and chronic respiratory failure with hypoxia; I46.9 Cardiac arrest, cause unspecified; J96.22 Acute and chronic respiratory failure with hypercapnia; G93.41 Metabolic encephalopathy; J44.1 Chronic obstructive pulmonary disease with (acute) exacerbation; E87.29 Other acidosis; E87.5 Hyperkalemia; J43.9 Emphysema, unspecified; I11.0 Hypertensive heart disease with heart failure; I50.9 Heart failure, unspecified; I27.20 Pulmonary hypertension, unspecified; I25.10 Atherosclerotic heart disease of native coronary artery without angina pectoris; H57.04 Mydriasis; Z99.81 Dependence on supplemental oxygen
CPT/HCPCS: 31500; 36415; 36573; 36600; 71045; 71275; 80048; 80076; 80202; 81003; 82375; 82805; 82962; 83605; 83735; 83880; 84100; 84145; 84478; 84484; 85025; 85027; 85379; 87070; 93005; 93306; 93458; 93970; 94002; 94003; 94070; 94640; 94660; 94664; 97163; 98960; 99291; A4606; C1725; C1769; C1887; C1893; J0610; J1200; J1644; J1650; J1815; J1940; J2003; J2250; J2543; J2704; J2920; J3010; J3370; J3490; J7030; J7050; J7060; J7512; J7626; Q9967